=== PATIENT | female | born 1960 | race Caucasian/White ===

== ENCOUNTER 2016-12-21 20:23 | Emergency (ER) | payer OTHER ==
[~2016-12-21] VITALS: Ht 160 cm; Wt 63.5 kg
[2016-12-21 20:26] VITALS: Ht 160 cm; Wt 63.5 kg
[2016-12-21 21:33] LABS: URINE BLOOD (Dip) POC 2+ (NEGATIVE)
[2016-12-21] MEDS ORDERED: OXYB5TAB7 PO (21:42)
[2016-12-21] MEDS ORDERED: ACET500C5 PO (21:42)
--- NOTE | 2016-12-21 22:00 | ERD ---
ER Documentation Chief Complaint Date/Time DATE: 12/21/16 TIME: 21:50 Chief Complaint painful urination w/ back pain x 3 days HPI 56-year-old female complaining of painful bladder spasms and urinary frequency 3 weeks. She also has bilateral lower back pain that radiates to his legs. Patient stated that she was diagnosed with UTI 3 weeks ago, and received Keflex treatment for 7 days. Her symptoms resolved for a short time, but returned again 9 days ago. She was then given Cipro, which had not helped. Patient went to urgent care several days ago, was told that she has kidney stones, but not UTI. Yesterday, she went to [place] [facility]. She received CT scan, was told that she does not have UTI. She was given [place] yesterday, but states that had not helped with her pain. In addition to urinary frequency, she does have slight dysuria. Denies urinary incontinence, denies saddle paresthesia. Denies fever or chills. Denies recent weight loss. Patient reports history of bladder prolapse, had received mesh sling in the past. The mesh sling was removed several years ago due to discomfort. ROS All systems reviewed and are negative except as per history of present illness. Medications Home Meds Active Scripts Oxybutynin Chloride* (Ditropan*) 5 Mg Tab, 5 MG PO TID, #30 TAB Prov:YEE CHANDLER. AGRONOMY RESEARCH MANAGER 12/21/16 Acetaminophen* (Tylophen*) 500 Mg Capsule, 1 CAP PO Q6H Y for PAIN AND OR ELEVATED TEMP, #20 CAP Prov:YEE CHANDLER. AGRONOMY RESEARCH MANAGER 12/21/16 Allergies Allergies: Coded Allergies: amoxicillin (Verified Allergy, Unknown, 12/21/16) nitrofurantoin (Verified Allergy, Unknown, 12/21/16) sulfamethoxazole (Verified Allergy, Unknown, 12/21/16) trimethoprim (Verified Allergy, Unknown, 12/21/16) PMhx/Soc History of Surgery: Yes Anesthesia Reaction: No Hx Neurological Disorder: No Hx Respiratory Disorders: No Hx Cardiac Disorders: No Hx Psychiatric Problems: No Hx Miscellaneous Medical Probl: Yes (frequent UTI's) Hx Alcohol Use: No Hx Substance Use: No Hx Tobacco Use: No Smoking Status: Never smoker Physical Exam Vitals Vital Signs Date Time Temp Pulse Resp B/P Pulse Ox O2 Delivery O2 Flow Rate FiO2 7/25/17 20:26 99.0 69 20 170/82 97 Physical Exam General: Well-developed, well-nourished, conscious and coherent, in no distress Skin: Warm and dry without rash, good texture and turgor Head: Normocephalic without evidence of trauma Eyes: Sclera and conjunctivae normal; pupils equal, round, and reactive to light; extraocular movements are intact Chest: Normal AP diameter. Good expansion without retractions. Nontender. Lungs are clear to auscultate bilaterally with good tidal volume Heart: Regular rate and rhythm. No murmur, rub, or gallops heard Abdomen: Soft and nontender without masses, guarding, or rebound. Bowel sounds are active. No hepatosplenomegaly Back: Without spinal or CVA tenderness Pelvis: Suprapubic tenderness Extremities: Full range of motion. Good strength bilaterally. No clubbing, cyanosis, or edema. Peripheral pulses are intact. Sensation intact Neuro: Alert and oriented 4, GCS 15. Cranial nerves grossly intact. Motor and sensory exams nonfocal. Moves all extremities. Speech clear. Gait normal Results 24 hrs Laboratory Tests Test 12/21/16 21:39 Bedside Urine pH (LAB) 7.0 Bedside Urine Protein (LAB) Negative Bedside Urine Glucose (UA) Negative Bedside Urine Ketones (LAB) Negative Bedside Urine Blood 2+ Bedside Urine Nitrite (LAB) Negative Bedside Urine Leukocyte Esterase (L Negative Procedures/MDM Well-appearing 56-year-old female presented ED with urinary frequency and painful bladder spasm. Urine dip is negative for UTI, 2+ blood is noted. Differentials include but not limited to overactive bladder, interstitial cystitis, urethral stricture, bladder cancer. Patient advised to follow-up with a urologist. Patient given referrals to urologists, however I advised patient she may need to get a referral from her PCP based on her insurance. Patient appears well, stable for discharge and outpatient management. Medical decision making shared with patient and family. Education provided to patient and family. Patient and family expressed understanding of the plan. Medications on discharge: Tylenol, oxybutynin. Follow-up: Primary care provider for urology referral. Disclaimer: Inadvertent spelling and grammatical errors are likely due to EHR/ dictation software use and do not reflect on the overall quality of patient care. Also, please note that the electronic time recorded on this note does not necessarily reflect the actual time of the patient encounter. Departure Diagnosis: Primary Impression: Urinary frequency Additional Impression: Painful bladder spasm Condition: Stable Patient Instructions: Overactive Bladder Syndrome (OAB) Referrals: CANDY CASTILLO MD, EUGENE MD Additional Instructions: Follow up with a urologist. You may need to go to your primary provider for a referral. YEE CHANDLER NP Dec 21, 2016 22:00
[2016-12-25 16:10] LABS: URINE BLOOD (Dip) POC 2+ (NEGATIVE)
== END 2016-12-21 22:03 | disposition home or self-care (01) ==
LOC: FTE 20:23
DX: R35.0 Frequency of micturition (principal); N32.89 Other specified disorders of bladder; R39.89 Other symptoms and signs involving the genitourinary system; R40.2412 Glasgow coma scale score 13-15, at arrival to emergency department
CPT/HCPCS: 81003; Z7502; 99283